=== PATIENT | male | born 1970 | race Caucasian/White ===

== ENCOUNTER 2017-09-23 20:23 | Emergency (ER) | payer SELFPAY ==
[~2017-09-23] VITALS: Wt 95.3 kg
[~2017-09-23 20:23] MED LIST: CELEXA 20MG20 MG/TA1 PO; CLINDAMYCIN300 MG PO; IBUPROFEN200 M1 PO; INDOCIN50 M1 RC; NORCO 325 MG-51 TA1 PO; XANAX0.5 MG PO
[2017-09-23 21:05] LABS: MEAN CELL VOLUME 90 fl (78-100); MEAN CORPUSCULAR HEMOGLOBIN 32 pg (27-31); MEAN CORPUSCULAR HGB CONC 35 g/dL (33-37); MEAN PLATELET VOLUME 10.4 fl (7.4-10.4); PLATELET COUNT 160 K/mm3 (130-400); RED BLOOD COUNT 2.48 M/mm3 (4.20-5.60); RED CELL DISTRIBUTION WIDTH 18.6 % (11.5-14.5); WHITE BLOOD COUNT 8.4 K/mm3 (4.8-10.8)
[2017-09-23 21:14] LABS: HEMATOCRIT 22.3 % (42.0-52.0); HEMOGLOBIN 7.8 g/dL (13.5-18.0)
[2017-09-23 21:19] LABS: ALBUMIN 3.7 g/dL (3.5-5.0); ALT/SGPT 31 U/L (21-72); AST-SGOT 53 U/L (17-59); BUN/CREATININE RATIO 23.7 (6.0-26.0); CALCIUM 9.1 mg/dL (8.4-10.2); CARBON DIOXIDE 34 mmol/L (22-30); GLUCOSE 206 mg/dL (75-110); SODIUM 123 mmol/L (137-145); TOTAL BILIRUBIN 0.8 mg/dL (0.2-1.3); TOTAL PROTEIN 7.6 g/dL (6.3-8.2)
[2017-09-23 21:20] LABS: PROTHROMBIN TIME 10.2 SECONDS (9.0-12.0)
[2017-09-23 21:29] LABS: CKMB ISOENZYME 0.3 ng/mL (0.6-3.5)
[2017-09-23 21:51] LABS: TROPONIN-I < 0.03 ng/mL (0.00-0.06)
[2017-09-23 21:58] LABS: POTASSIUM 2.2 mmol/L (3.6-5.0)
[2017-09-23 21:59] LABS: ACETAMINOPHEN < 4 ug/mL (10-30); ALCOHOL IN-HOUSE < 10 mg/dL
[2017-09-23 22:00] LABS: URINE APPEARANCE HAZY; URINE COLOR AMBER; URINE PROTEIN(semi-quant) TRACE mg/dL (NEGATIVE)
[2017-09-23 22:01] LABS: URINE GLUCOSE NEGATIVE (NEGATIVE)
[2017-09-23 22:04] LABS: URINE KETONE 1+ (NEGATIVE)
[2017-09-23 22:05] LABS: URINE BILIRUBIN 1+ (NEGATIVE); URINE BLOOD 50 ery/uL (NEGATIVE); URINE LEUKOCYTE ESTERASE 1+ (NEGATIVE); URINE UROBILINOGEN 4 mg/dL (NORMAL); URINE WBC 31-50 /hpf (0-3)
[2017-09-23 22:06] LABS: URINE NITRATE NEGATIVE (NEGATIVE)
[2017-09-23 22:07] LABS: LYMPHOCYTE 23 % (20-51); MONOCYTE 6 % (3-10); NEUTROPHILS 69 % (42-75)
[2017-09-23 22:08] LABS: HYPOCHROMIA 1+
[2017-09-24 00:20] VITALS: BP 96/48
== END 2017-09-24 00:20 | disposition short-term general hospital (02) ==
LOC: ED 20:23
PROVIDERS: Nurse Practitioner Primary Care
DX: A41.9 Sepsis, unspecified organism (principal); R65.21 Severe sepsis with septic shock; R41.82 Altered mental status, unspecified; I10 Essential (primary) hypertension; F10.20 Alcohol dependence, uncomplicated; Y90.2 Blood alcohol level of 40-59 mg/100 ml; F41.9 Anxiety disorder, unspecified; R17 Unspecified jaundice; R00.0 Tachycardia, unspecified; R10.812 Left upper quadrant abdominal tenderness; R10.11 Right upper quadrant pain; R23.4 Changes in skin texture; R15.9 Full incontinence of feces
CPT/HCPCS: J1956; J3480; J7030; Q9967

== ENCOUNTER → 2018-01-07 | Outpatient (CLI) | payer MEDICARE, MEDICAID ==
[2018-01-07 11:43] LABS: BASO # 0.1 (0.02-0.10); EOS # 0.4 (0.04-0.40); EOS % 3.3 % (0.0-4.0); HEMATOCRIT 48.5 % (42.0-52.0); HEMOGLOBIN 15.6 g/dL (13.5-18.0); LYMPH# 3.2 (1.50-4.00); MEAN CELL VOLUME 91 fl (78-100); MEAN CORPUSCULAR HEMOGLOBIN 29 pg (27-31); MEAN CORPUSCULAR HGB CONC 32 g/dL (33-37); MEAN PLATELET VOLUME 10.7 fl (7.4-10.4); MONO # 0.6 (0.20-0.80); NEU # 7.8 (1.40-6.50); PLATELET COUNT 354 K/mm3 (130-400); RED BLOOD COUNT 5.34 M/mm3 (4.20-5.60); RED CELL DISTRIBUTION WIDTH 14.2 % (11.5-14.5); WHITE BLOOD COUNT 12.2 K/mm3 (4.8-10.8)
[2018-01-07 12:10] LABS: ALBUMIN 4.7 g/dL (3.5-5.0); BUN/CREATININE RATIO 20.1 (6.0-26.0); CALCIUM 9.9 mg/dL (8.4-10.2); POTASSIUM 4.2 mmol/L (3.6-5.0); TOTAL BILIRUBIN 0.4 mg/dL (0.2-1.3); TOTAL PROTEIN 8.9 g/dL (6.3-8.2)
[2018-01-07 13:30] LABS: ERYTHROCYTE SEDIMENTATION RATE 28 mm/hr (0-15)
[2018-01-07 22:19] LABS: TESTOSTERONE 635 ng/dL (240-871)
[2018-01-08 02:44] LABS: C-REACTIVE PROTEIN XXX
[2018-01-09 01:37] LABS: ANA SCREEN with REFLEX Positive (Negative)
== END ==
LOC: LAB 10:52
PROVIDERS: Internal Medicine
DX: M19.071 Primary osteoarthritis, right ankle and foot (principal); M19.072 Primary osteoarthritis, left ankle and foot; M17.0 Bilateral primary osteoarthritis of knee; M18.0 Bilateral primary osteoarthritis of first carpometacarpal joints; M19.042 Primary osteoarthritis, left hand; M85.842 Other specified disorders of bone density and structure, left hand; M85.841 Other specified disorders of bone density and structure, right hand; I63.9 Cerebral infarction, unspecified; R65.21 Severe sepsis with septic shock; Z12.5 Encounter for screening for malignant neoplasm of prostate; Z87.81 Personal history of (healed) traumatic fracture

== ENCOUNTER → 2019-04-27 | Outpatient (CLI) | payer MEDICARE ==
[2019-04-27 11:39] LABS: BASO # 0.2 (0.02-0.10); EOS # 0.3 (0.04-0.40); EOS % 2.1 % (0.0-4.0); HEMATOCRIT 49.8 % (42.0-52.0); HEMOGLOBIN 17.4 g/dL (13.5-18.0); LYMPH# 3.3 (1.50-4.00); MEAN CELL VOLUME 92 fl (78-100); MEAN CORPUSCULAR HEMOGLOBIN 32 pg (27-31); MEAN CORPUSCULAR HGB CONC 35 g/dL (33-37); MEAN PLATELET VOLUME 10.1 fl (7.4-10.4); MONO # 0.6 (0.20-0.80); NEU # 8.4 (1.40-6.50); PLATELET COUNT 284 K/mm3 (130-400); RED BLOOD COUNT 5.44 M/mm3 (4.20-5.60); RED CELL DISTRIBUTION WIDTH 12.8 % (11.5-14.5); WHITE BLOOD COUNT 12.8 K/mm3 (4.8-10.8)
[2019-04-27 12:20] LABS: ALBUMIN 4.3 g/dL (3.5-5.0)
[2019-04-27 12:21] LABS: CALCIUM 9.8 mg/dL (8.3-10.5)
[2019-04-27 12:23] LABS: TOTAL PROTEIN 8.3 g/dL (6.4-8.3)
[2019-04-27 12:24] LABS: TOTAL BILIRUBIN 0.3 mg/dL (0.2-1.2)
[2019-04-27 13:30] LABS: ERYTHROCYTE SEDIMENTATION RATE 5 mm/hr (0-15)
== END ==
LOC: LAB 11:28
PROVIDERS: Internal Medicine
DX: S82.392D Other fracture of lower end of left tibia, subsequent encounter for closed fracture with routine healing (principal); I63.9 Cerebral infarction, unspecified; R65.21 Severe sepsis with septic shock; M79.643 Pain in unspecified hand; E11.9 Type 2 diabetes mellitus without complications

== ENCOUNTER → 2019-08-24 | Outpatient (CLI) | payer MEDICARE ==
[2019-08-24 13:22] LABS: POTASSIUM 4.7 mmol/L (3.5-5.1)
[2019-08-24 13:23] LABS: ALBUMIN 4.3 g/dL (3.5-5.0)
[2019-08-24 13:24] LABS: CALCIUM 10.1 mg/dL (8.3-10.5)
[2019-08-24 13:25] LABS: TOTAL PROTEIN 7.5 g/dL (6.4-8.3)
[2019-08-24 13:27] LABS: TOTAL BILIRUBIN 0.5 mg/dL (0.2-1.2)
[2019-08-24 13:30] LABS: URINE APPEARANCE CLEAR; URINE BILIRUBIN NEGATIVE (NEGATIVE); URINE BLOOD NEGATIVE (NEGATIVE); URINE COLOR LT YELLOW; URINE GLUCOSE NEGATIVE (NEGATIVE); URINE KETONE NEGATIVE (NEGATIVE); URINE LEUKOCYTE ESTERASE NEGATIVE (NEGATIVE); URINE NITRATE NEGATIVE (NEGATIVE); URINE PROTEIN(semi-quant) NEGATIVE (NEGATIVE); URINE UROBILINOGEN NORMAL (NORMAL); URINE WBC 0-1 /hpf (0-3)
[2019-08-24 13:36] LABS: BASO # 0.1 (0.02-0.10); EOS # 0.4 (0.04-0.40); EOS % 2.9 % (0.0-4.0); HEMATOCRIT 52.1 % (42.0-52.0); HEMOGLOBIN 17.6 g/dL (13.5-18.0); MEAN CELL VOLUME 92 fl (78-100); MEAN CORPUSCULAR HEMOGLOBIN 31 pg (27-31); MEAN CORPUSCULAR HGB CONC 34 g/dL (33-37); MEAN PLATELET VOLUME 10.3 fl (7.4-10.4); MONO # 0.7 (0.20-0.80); NEU # 8.5 (1.40-6.50); PLATELET COUNT 294 K/mm3 (130-400); RED BLOOD COUNT 5.64 M/mm3 (4.20-5.60); RED CELL DISTRIBUTION WIDTH 13.8 % (11.5-14.5); WHITE BLOOD COUNT 13.8 K/mm3 (4.8-10.8)
[2019-08-24 13:39] LABS: ERYTHROCYTE SEDIMENTATION RATE 3 mm/hr (0-15)
[2019-08-24 23:31] LABS: CREATININE OTHER SOURCE 20 mg/dL (())
== END ==
LOC: LAB 12:22
PROVIDERS: Internal Medicine
DX: Z12.5 Encounter for screening for malignant neoplasm of prostate (principal); I10 Essential (primary) hypertension; E11.9 Type 2 diabetes mellitus without complications; N52.9 Male erectile dysfunction, unspecified

== ENCOUNTER → 2021-03-09 | Outpatient (CLI) | payer MEDICARE ==
[2021-03-09 10:03] LABS: EOS # 0.42 (0.04-0.40); EOS % 2.7 % (0.0-4.0); HEMATOCRIT 47.1 % (42.0-52.0); HEMOGLOBIN 15.5 g/dL (13.5-18.0); LYMPH# 3.48 (1.50-4.00); MEAN CELL VOLUME 94 fl (78-100); MEAN CORPUSCULAR HEMOGLOBIN 31 pg (27-31); MEAN CORPUSCULAR HGB CONC 33 g/dL (33-37); MEAN PLATELET VOLUME 9.5 fl (7.4-10.4); MONO # 0.59 (0.20-0.80); NEU # 11.06 (1.40-6.50); PLATELET COUNT 326 K/mm3 (130-400); RED BLOOD COUNT 5.02 M/mm3 (4.20-5.60); RED CELL DISTRIBUTION WIDTH 12.1 % (11.5-14.5); WHITE BLOOD COUNT 15.7 K/mm3 (4.8-10.8)
[2021-03-09 10:13] LABS: ALBUMIN 4.3 g/dL (3.5-5.0); POTASSIUM 4.4 mmol/L (3.5-5.1)
[2021-03-09 10:14] LABS: CALCIUM 10.1 mg/dL (8.3-10.5)
[2021-03-09 10:16] LABS: TOTAL PROTEIN 7.5 g/dL (6.4-8.3)
[2021-03-09 10:18] LABS: TOTAL BILIRUBIN 0.3 mg/dL (0.2-1.2)
[2021-03-09 10:20] LABS: URINE APPEARANCE CLEAR; URINE BILIRUBIN NEGATIVE (NEGATIVE); URINE BLOOD NEGATIVE (NEGATIVE); URINE COLOR YELLOW; URINE GLUCOSE NEGATIVE (NEGATIVE); URINE KETONE NEGATIVE (NEGATIVE); URINE LEUKOCYTE ESTERASE NEGATIVE (NEGATIVE); URINE NITRATE NEGATIVE (NEGATIVE); URINE PROTEIN(semi-quant) NEGATIVE (NEGATIVE); URINE UROBILINOGEN NORMAL (NORMAL); URINE WBC 0-1 /hpf (0-3)
[2021-03-09 11:36] LABS: ERYTHROCYTE SEDIMENTATION RATE 6 mm/hr (0-15)
== END ==
LOC: LAB 09:43
PROVIDERS: Internal Medicine
DX: Z12.5 Encounter for screening for malignant neoplasm of prostate (principal); E11.9 Type 2 diabetes mellitus without complications; E78.2 Mixed hyperlipidemia; I10 Essential (primary) hypertension